=== PATIENT | male | born 1945 | race Caucasian/White ===

== ENCOUNTER → 2018-08-29 | Outpatient (REF) | payer MEDICARE ==
[~2018-08-29] MED LIST: AMOXICILLIN/CL400 MG PO; ASA LOW DOSE81 MG OR; ASPIRIN81 MG PO; ATROVENT HFA17 MCG IN; AUGMENTIN875TAB PO; CIPRO500 MG OR; EC ASPIRIN325 MG PO; EFFEXOR XR150 MG OR; FAMOTIDINE20 M1 PO; FERRAPLUS 90 PO; FLAGYL500 MG OR; FLOMAX0.4 M1 PO; FLOMAX0.4 MG OR; K-DUR/KLOR-CON10 MEQ PO; LASIX 20 MG20 MG/TAB PO; MAG OXIDE400 MG PO; METOPROL TAR25 MG PO; MOTRIN200 MG PO; PERCOCET 5/325M1 TAB PO; POTASSIUM CITR540 MG PO; PRAVASTATIN10 MG PO; PROTONIX40 MG OR; PROTONIX40 MG PO; RESTORIL15 MG PO; VITAMIN D1000 UNI2 PO
[2018-08-29 07:55] LABS: HEMATOCRIT 40.5 % (39.0-50.0); HEMOGLOBIN 13.6 g/dl (14.0-18.0); MEAN CELL VOLUME 95.1 fL CALC (80.0-100.0); MEAN CORPUSCULAR HGB 31.9 pG CALC (26.0-32.0); MEAN CORPUSCULAR HGB CONC 33.6 g/L CALC (32.0-36.0); RED BLOOD COUNT 4.26 mill/uL (4.70-6.10); RED CELL DISTRI WIDTH 13.4 % (11.5-15.5)
[2018-08-29 08:45] LABS: ALBUMIN 4.4 g/dL (3.2-5.0); ALKALINE PHOSPHATASE 68 u/l (38-126); ANION GAP 12 (6-22 (CALC)); BILIRUBIN, TOTAL 0.9 mg/dL (0.0-1.4); BUN 21 mg/dL (8-23); BUN/CREATININE RATIO 17 (12-20 (CALC)); CARBON DIOXIDE 26 mmol/l (22-30); CHLORIDE 109 mmol/l (95-108); CREATININE 1.3 mg/dL (0.7-1.3); GFR 54 ML/MIN (>=60 (CALC)); GFR FOR AFR.AMER. > 60 ML/MIN (>=60 (CALC)); POTASSIUM 4.4 mmol/l (3.5-5.1); SGOT/AST 17 u/l (19-48); SODIUM 143 mmol/l (137-146); TOTAL PROTEIN 6.5 g/dL (6.3-8.2)
== END | disposition home or self-care (01) ==
LOC: LAB 06:57
PROVIDERS: ATTEND Nurse Practitioner
DX: D61.818 Other pancytopenia (principal); D69.6 Thrombocytopenia, unspecified

== ENCOUNTER 2019-05-06 17:59 | Emergency (ER) | payer MEDICARE ==
[~2019-05-06] VITALS: Ht 167.6 cm; Wt 67.0 kg
[2019-05-06 18:45] VITALS: BP 140/55
== END 2019-05-06 18:45 | disposition home or self-care (01) ==
LOC: ED 17:59
DX: L76.32 Postprocedural hematoma of skin and subcutaneous tissue following other procedure (principal); Y84.0 Cardiac catheterization as the cause of abnormal reaction of the patient, or of later complication, without mention of misadventure at the time of the procedure

== ENCOUNTER 2021-01-01 08:52 | Emergency (ER) | payer MEDICARE ==
[~2021-01-01] VITALS: Ht 167.6 cm; Wt 63.6 kg
[~2021-01-01 08:52] MED LIST changes: +EZALLOR SPRINKLE5 MG; +KAPSPARGO SPRIN25 MG; +LUBRICANT EYE D0.5 % OP; +METROCREAM0.75 % EX; +PEG 3350 XX; +POTASSIUM CITR15 MEQ; +TAMSULOSIN HCL0.4 MG PO; +WARFARIN3 MG PO
[2021-01-01] MEDS ORDERED: TYLENOL # 31 TA1 PO (10:04)
[2021-01-01] MEDS ORDERED: NITROGLYCERIN0.4 MG SL (10:12)
[2021-01-01 10:24] VITALS: BP 115/71
== END 2021-01-01 10:24 | disposition home or self-care (01) ==
LOC: ED 08:52
DX: M47.817 Spondylosis without myelopathy or radiculopathy, lumbosacral region (principal); E78.00 Pure hypercholesterolemia, unspecified; Z79.01 Long term (current) use of anticoagulants; Z95.810 Presence of automatic (implantable) cardiac defibrillator; Z85.72 Personal history of non-Hodgkin lymphomas; Z92.21 Personal history of antineoplastic chemotherapy

== ENCOUNTER 2021-06-27 03:47 | Emergency (ER) | payer MEDICARE ==
[~2021-06-27] VITALS: Ht 152.4 cm; Wt 59.0 kg
[~2021-06-27 03:47] MED LIST changes: +NITROGLYCERIN0.4 MG SL; +TYLENOL # 31 TA1 PO
[2021-06-27 04:25] VITALS: BP 144/71
== END 2021-06-27 04:25 | disposition home or self-care (01) ==
LOC: ED 03:47
PROC: 09C3XZZ Extirpation of Matter from Right External Auditory Canal, External Approach (ICD-10-PCS; principal; 2021-06-27)
DX: T16.1XXA Foreign body in right ear, initial encounter (principal); E78.00 Pure hypercholesterolemia, unspecified; C85.90 Non-Hodgkin lymphoma, unspecified, unspecified site; X58.XXXA Exposure to other specified factors, initial encounter; Z95.810 Presence of automatic (implantable) cardiac defibrillator

== ENCOUNTER 2024-01-11 20:39 | Emergency (ER) | payer MEDICARE ==
[~2024-01-11] VITALS: Ht 167.6 cm; Wt 64.0 kg
[~2024-01-11 20:39] MED LIST changes: +LORTAB 5/3255 MG PO; -POTASSIUM CITR15 MEQ; +POTASSIUM CITR15 MEQ PO; +PRALUENT150 MG IM; +VOLTAREN - GENE75 MG PO
[2024-01-11 22:09] LABS: BASO% 0.9 % (0-3); EOS% 4.2 % (0-8); HEMATOCRIT 36.7 % (39.0-50.0); IMMATURE GRANULOCYTES 0.4 % (0.0-5.0); LYMPH% 27.2 % (15-41); MEAN CELL VOLUME 96.1 fL CALC (80.0-100.0); MEAN CORPUSCULAR HGB 31.4 pG CALC (26.0-32.0); MEAN CORPUSCULAR HGB CONC 32.7 g/dL CAL (32.0-36.0); MONO% 12.4 % (2-13); NEUT# 2.49 thou/uL (1.82-7.42); NEUT% 54.9 % (42-76); RED BLOOD COUNT 3.82 mill/uL (4.70-6.10); RED CELL DISTRI WIDTH 13.5 % (11.5-15.5)
[2024-01-11] MEDS ORDERED: REFRESH PLUS0.5 % OU (22:24)
[2024-01-11 22:25] LABS: INTERNATIONAL NORMALIZED RATIO 2.7 RATIO (0.7-1.3); PROTHROMBIN TIME 24.6 SECONDS (9.0-12.5)
[2024-01-11] MEDS ORDERED: VITAMIN D-32000 UNI1 PO (22:25)
[2024-01-11] MEDS ORDERED: B-122500 MCG PO (22:26)
[2024-01-11] MEDS ORDERED: AZELASTINE HCL0.1 % (22:27)
[2024-01-11] MEDS ORDERED: ALLERGY RE50 MCG/ACT PO (22:28)
[2024-01-11] MEDS ORDERED: [UNRECOGNIZED DRUG - OTHER] (22:29)
[2024-01-11] MEDS ORDERED: [UNRECOGNIZED DRUG - OTHER] (22:30)
[2024-01-11 22:33] LABS: ALBUMIN 3.9 g/dL (3.2-5.0); BILIRUBIN, TOTAL 0.6 mg/dL (0.2-1.3); CREATININE 1.1 mg/dL (0.7-1.3); POTASSIUM 4.1 mmol/l (3.5-5.1); TOTAL PROTEIN 6.3 g/dL (6.3-8.2)
[2024-01-11] MEDS ORDERED: TETRACAINE HCL 0.5 %/4 ML SOL OD ONE (23:00)
[2024-01-11] MEDS ORDERED: FLUORESCEIN SODIUM 1 MG EA OD ONE (23:00)
[2024-01-11] MEDS ORDERED: POLYMYXIN B SUL1 SOL OD (23:21)
[2024-01-11 23:25] VITALS: BP 145/63
[2024-01-11] MEDS ORDERED: ERYTHROMYCIN OPTHALMIC 5 MG/GM TUBE OD ONE (23:30)
== END 2024-01-11 23:33 | disposition home or self-care (01) ==
LOC: ED 20:39
PROVIDERS: Internal Medicine
DX: S05.32XA Ocular laceration without prolapse or loss of intraocular tissue, left eye, initial encounter (principal); H11.32 Conjunctival hemorrhage, left eye; I25.10 Atherosclerotic heart disease of native coronary artery without angina pectoris; G62.9 Polyneuropathy, unspecified; C85.90 Non-Hodgkin lymphoma, unspecified, unspecified site; X58.XXXA Exposure to other specified factors, initial encounter; Y93.H2 Activity, gardening and landscaping; Y92.007 Garden or yard of unspecified non-institutional (private) residence as the place of occurrence of the external cause; Z95.810 Presence of automatic (implantable) cardiac defibrillator; Z79.01 Long term (current) use of anticoagulants